=== PATIENT | female | born 1960 | race African-American/Black ===

== ENCOUNTER 2018-08-27 14:49 | Emergency (ER) | payer OTHER ==
[~2018-08-27] VITALS: Ht 170.2 cm; Wt 108.0 kg
[2018-08-27 14:49] VITALS: Ht 170.2 cm; Wt 108.0 kg
[2018-08-27] MEDS ORDERED: KETOROLAC 15 MG INJ IV STA (15:05)
[2018-08-27] MEDS ORDERED: SOD CHLORIDE 0.9% 1,000 ML IV STA (15:05)
--- NOTE | 2018-08-27 15:50 | ERD ---
ER Documentation Chief Complaint Chief Complaint code mateus dizziness x 10 min ago, hx dm HPI This is a 58-year-old female with a past medical history of diabetes controlled on oral glycemic agents who is presenting after a near syncopal event. The patient has been in the hospital for the last day to care for her daughter who is admitted for refractory nausea and vomiting. The patient reports that she has not been eating well over the last day, but she did eat this morning. She went outside to have a cigarette. When she came back inside she started to feel very lightheaded and dizzy. By the time she got up to the [facility], she felt like she is going to pass out, and a code green was called. The patient never fully passed out. She never fell. She denies any trauma or injury. She does not endorse a headache. She does not feel that the room is spinning around her. She just feels fatigued and lightheaded. She has no chest pain or shortness of breath. She has no abdominal pain. She does endorse chronic bilateral lower extremity pain and paresthesias which are unchanged blood present currently. She denies any focal deficits. She denies any weakness or numbness to the face or extremities. She has been getting over a cold recently. She denies any fever or chills or cough today. ROS All systems reviewed and are negative except as per history of present illness. PMhx/Soc History of Surgery: No Anesthesia Reaction: No Hx Neurological Disorder: No Hx Respiratory Disorders: No Hx Cardiac Disorders: No Hx Psychiatric Problems: No Hx Miscellaneous Medical Probl: Yes (DM) Hx Alcohol Use: No Hx Substance Use: No Hx Tobacco Use: No Smoking Status: Never smoker FmHx Family History: No diabetes Physical Exam Vitals Vital Signs Date Temp Pulse Resp B/P (MAP) Pulse Ox O2 O2 Flow FiO2 Time Delivery Rate 08/27/18 94 18 144/83 96 Room Air 15:20 (103) 08/27/18 96 18 130/87 100 15:15 (101) 08/27/18 98.2 95 18 132/108 100 14:49 (116) Physical Exam Const: No apparent distress, well-developed, well-nourished Head: Normocephalic, Atraumatic Eyes: Normal Conjunctiva. Extraocular movements intact. Pupils equal, round and reactive to light ENT: Normal External Ears, Nose and Mouth. Neck: Full range of motion. No meningismus. Resp: Clear to auscultation bilaterally, No wheezes, rales or rhonchi Cardio: Regular rate and rhythm. No murmurs, rubs or gallops Abd: Soft, non tender, non distended. Normal bowel sounds Skin: No petechiae or rashes Back: No midline tenderness. No CVA tenderness Ext: No cyanosis, or edema Neur: Awake and alert, oriented 4. Cranial nerves intact. No facial droop. Normal strength, sensation and coordination. Psych: Normal Mood and Affect Result Diagram: 08/27/18 1520 08/27/18 1520 Results 24 hrs Laboratory Tests Test 08/27/18 14:52 08/27/18 15:20 08/27/18 16:15 08/27/18 16:46 Bedside Glucose 278 mg/dL 264 mg/dL White Blood Count 9.2 10^3/ul Red Blood Count 4.44 10^6/ul Hemoglobin 13.4 g/dl Hematocrit 40.6 % Mean Corpuscular 91.4 fl Volume Mean Corpuscular 30.2 pg Hemoglobin Mean Corpuscular 33.0 g/dl Hemoglobin Concen t Red Cell 14.0 % Distribution Width Platelet Count 317 10^3/UL Mean Platelet 9.8 fl Volume Immature 0.200 % Granulocytes % Neutrophils % 57.3 % Lymphocytes % 33.5 % Monocytes % 6.3 % Eosinophils % 2.3 % Basophils % 0.4 % Nucleated Red 0.0 /100WBC Blood Cells % Immature 0.020 10^3/ul Granulocytes # Neutrophils # 5.3 10^3/ul Lymphocytes # 3.1 10^3/ul Monocytes # 0.6 10^3/ul Eosinophils # 0.2 10^3/ul Basophils # 0.0 10^3/ul Nucleated Red 0.0 10^3/ul Blood Cells # Sodium Level 138 mmol/L Potassium Level 4.3 mmol/L Chloride Level 98 mmol/L Carbon Dioxide 28 mmol/L Level Anion Gap 12 Blood Urea 14 mg/dl Nitrogen Creatinine 0.78 mg/dl Est Glomerular > 60 mL/min Filtrat Rate mL/min Glucose Level 329 mg/dl Calcium Level 9.9 mg/dl Troponin I < 0.012 ng/ml Urine Color YELLOW Urine Clarity CLOUDY Urine pH 5.0 Urine Specific 1.026 [place] Urine Ketones NEGATIVE mg/dL Urine Nitrite NEGATIVE mg/dL Urine Bilirubin NEGATIVE mg/dL Urine NEGATIVE mg/dL Urobilinogen Urine Leukocyte 1+ Jeramie/ul Esterase Urine Microscopic 2 /HPF RBC Urine Microscopic 4 /HPF WBC Urine Squamous FEW /HPF Epithelial Cells Urine Mucus FEW /HPF Urine Hemoglobin NEGATIVE mg/dL Urine Glucose 2+ mg/dL Urine Total NEGATIVE mg/dl Protein Current Medications Medications Dose Sig/Aide Start Time Status Last (Trade) Ordered Route PRN Stop Time Admin Dose Reason Admin Sodium 1,000 ml @ Q1H STAT 08/27/18 DC 08/27/18 Chloride 1,000 mls/hr IV 15:05 15:25 08/27/18 16:04 Ketorolac 15 mg ONCE STAT 08/27/18 DC 08/27/18 Tromethamine IV 15:05 15:25 (Toradol) 08/27/18 15:07 Procedures/MDM MDM The patient's presentation warrants further investigation. Previous medical records, if available, were reviewed. LABS The patient's laboratory testing was obtained and reviewed. No emergent treatment was required unless described below. CBC: No E/o of systemic infection or severe anemia or thrombocytopenia BMP: No E/o severe acidosis or alkalosis or renal failure. Hyperglycemia without diabetic ketoacidosis Troponin: No E/o acute ischemia Urine: No E/o acute infection or hematuria EKG EKG read by me: Rate/Rhythm: Regular rate and rhythm at a rate of 95 bpm Intervals: Normal Acton: Normal Impression: No evidence of acute ischemia or arrhythmia IMAGING Imaging and Radiology interpretation reviewed. CXR TREATMENT/DISPOSITION The patient presents after a near-syncopal event. The patient does have a history of diabetes, and her diet has not been stable over the last 1-2 days since her daughter was admitted. This could be the etiology of her symptoms today. The patient was fully assessed. The patient has a reassuring physical exam. The patient is not clinically orthostatic. The patient is not dizzy. I have decreased suspicion for vertigo. The patient has no signs of emergent or symptomatic anemia. The patient does not have any emergent electrolyte or metabolic emergencies. I have decrease suspicion for a thyroid disorder. The patient is not toxic appearing. I have decreased suspicion for an infectious etiology of symptoms. The patient's EKG and troponin are reassuring. I have low suspicion for acute coronary syndrome. I do not see evidence of any emergent cardiac arrhythmia, which includes but is not limited to heart block, Brugada syndrome or WPW. The patient has no heart murmurs or rales. There is no evidence of cardiomegaly on exam or chest xray. I have low suspicion for hypertrophic cardiomyopathy. I do not see evidence of CHF. The patient does not endorse any chest or pleuritic pain. The history is negative for bleeding or clotting disorders. The patient has not been involved in any recent prolonged trips or surgeries or hospitalizations. The patient has no calf tenderness or swelling. I have decreased suspicion for PE as the etiology of symptoms. The patient has no focal deficits. The neurologic exam is reassuring. I have decreased suspicion for cerebral ischemia. There was no trauma or injury. There is no personal or family history of cerebral aneurysm. I have decreased suspicion for SAH or other ICH. I have low suspicion for temporal arteritis, cavernous venous thrombosis, subdural hematoma, epidural hematoma, meningitis. The [place] Syncope Rule was applied and the patient was found to be low risk for a serious outcome. Upon reevaluation of the patient, symptoms have improved. No emergent diagnoses were identified. At this time, I feel that the patient stable for discharge. The patient was instructed to follow-up with a primary care physician in 1-3 days. The patient will be given strict precautions with which to return to the emergency department. Prescriptions: None The patient's blood pressure was elevated at greater than 120/80 while in the emergency department. The patient was otherwise stable with no evidence of hypertensive urgency or emergency. The patient does not require admission for blood pressure control. I have discussed with the patient the risks of hypertension. I have instructed the patient to return to the ER for any new or worsening symptoms including chest pain, shortness of breath, headache, blurred vision, confusion, nausea, vomiting or LOC. I have advised the patient to follow up with the primary care physician for outpatient monitoring and treatment for hypertension in 1-3 days. Disclaimer: Inadvertent spelling and grammatical errors are likely due to EHR/dictation software use and do not reflect on the overall quality of patient care. Note that the electronic time recorded on this note does not necessarily reflect the actual time of the patient encounter. Departure Diagnosis: Primary Impression: Near syncope Additional Impression: Hyperglycemia Condition: Stable HANY HILL MD Aug 27, 2018 15:50
[2018-08-27 17:27] VITALS: BP 113/70; PULSE 68; RESP 20
== END 2018-08-27 17:29 | disposition home or self-care (01) ==
LOC: E/R 14:49
DX: E11.65 Type 2 diabetes mellitus with hyperglycemia (principal); R55 Syncope and collapse
CPT/HCPCS: 36415; 71045; 80048; 81001; 82962; 84484; 85025; 93005; 96374; J1885; J7030; Z7502